=== PATIENT | female | born 1955 | race African-American/Black ===

== ENCOUNTER 2020-04-12 05:31 | Observation (INO) | payer MEDICARE ==
[2020-04-08 13:58] LABS: BASOPHILS # (AUTO) 0.1 (0.0-0.1); BASOPHILS % 0.6 % (0.0-1.0); EOSINOPHILS # (AUTO) 0.1 (0.0-0.4); EOSINOPHILS % 1.2 % (0.0-6.0); HEMATOCRIT 36.6 % (34.2-44.1); HEMOGLOBIN 11.2 g/dL (12.0-16.0); LYMPHOCYTES # (AUTO) 4.5 (1.0-3.2); LYMPHOCYTES % 41.7 % (18.0-39.1); MEAN CORPUSCULAR HEMOGLOBIN 23.2 pg (28-32); MEAN CORPUSCULAR HGB CONC 30.6 g/dL (31-35); MEAN CORPUSCULAR VOLUME 75.9 fL (81-99); MONOCYTES # (AUTO) 0.9 (0.2-0.8); MONOCYTES % 8.2 % (4.4-11.3); NEUTROPHILS # (AUTO) 5.2 (2.1-6.9); NEUTROPHILS % 47.9 % (38.7-80.0); PLATELET COUNT 291 x10e3/uL (140-360); RED BLOOD COUNT 4.82 x10e6/uL (3.6-5.1); RED CELL DISTRIBUTION WIDTH 16.5 % (11.7-14.4)
[~2020-04-12] VITALS: Ht 170.2 cm; Wt 121.6 kg
[~2020-04-12 05:31] MED LIST: AMLODIPINE BESYL5 MG PO; ATORVASTATIN CA20 MG PO; MELOXICAM7.5 MG PO
[2020-04-12] MEDS ORDERED: TRANEXAMIC ACID 1,000 MG/10 ML ML ONE (06:22)
[2020-04-12] MEDS ORDERED: VANCOMYCIN HCL 1,000 MG ONE (06:22)
[2020-04-12] MEDS ORDERED: SODIUM CHLORIDE 0.9% 500ML 500 ML ONE (06:23)
[2020-04-12] MEDS ORDERED: DEXAMETHASONE SOD PHOS 10 MG/1 ML VIAL ONE (06:28)
[2020-04-12] MEDS ORDERED: CEFAZOLIN SOD 1 GM/NS 50ML 100 ML IV ONE (06:28)
[2020-04-12] MEDS ORDERED: GABAPENTIN 300 MG CAP ONE (06:28)
[2020-04-12] MEDS ORDERED: CELECOXIB 200 MG CAP ONE (06:28)
[2020-04-12] MEDS ORDERED: BUPIVACAINE 7.5MG/ML /DEXTROSE 82.5MG/ML 2 ML AMP INJ ONE (06:44)
[2020-04-12] MEDS ORDERED: ROPIVACAINE 246.25 MG, EPINEPHRINE HCL 1:1000 1ML 0.5 MG, CLONIDINE HCL 0.08 MG, KETORO... INJ ONE ×5 (08:00)
[2020-04-12] MEDS ORDERED: DOCUSATE SODIUM 100 MG CAP PO PRN (08:30)
[2020-04-12] MEDS ORDERED: ACETAMINOPHEN 650 MG SUPP PR PRN (08:30)
[2020-04-12] MEDS ORDERED: KETOROLAC TROMETHAMINE 30 MG/ML VIAL IV PRN (08:30)
[2020-04-12] MEDS ORDERED: DIPHENHYDRAMINE HCL INJ 50 MG/ML VIAL IV PRN (08:30)
[2020-04-12] MEDS ORDERED: ONDANSETRON HCL INJ 2MG/ML 2ML 2 MG/ML VIAL IV PRN (08:30)
[2020-04-12] MEDS: SODIUM CHLORIDE 0.9% 1000ML 1,000 ML IV SCH ×2 (08:30→17:21)
[2020-04-12] MEDS ORDERED: HYDROCODONE/APAP 5MG-325MG TAB PO PRN (08:30)
[2020-04-12] MEDS: CELECOXIB 100 MG CAP PO SCH ×2 (09:00→17:01)
[2020-04-12] MEDS: ASPIRIN 325 MG TAB PO SCH ×2 (09:00→17:01)
--- NOTE | 2020-04-12 09:19 | Diagnostic Imaging Report ---
Pelvis one view INDICATION: ^POST OP ^[id number] ^0850 ^IN PACU Comparison: None available. Discussion: Postoperative changes are identified from bilateral hip arthroplasties. Right acetabular single fixation screw is noted. No left acetabular fixation screws are noted. Prostheses appear in anatomic alignment. Pubic symphysis is not widened. Subcutaneous emphysema is identified overlying the right lateral soft tissues of the hip. IMPRESSION: Bilateral hip prostheses appear in anatomic alignment without evidence of hardware malfunction. Signed by: Hernan Pederson MD on 04/12/2020 9:16 AM
--- NOTE | 2020-04-12 09:38 | Operative Report ---
DATE OF PROCEDURE: 04/12/2020 SURGEON: Jas Gomez MD CHUTE TENDER: Steve Figueroa, certified PA. PREOPERATIVE DIAGNOSIS: Osteoarthritis, right hip. SECONDARY DIAGNOSIS: Morbid obesity. POSTOPERATIVE DIAGNOSES: 1. Osteoarthritis, right hip. 2. Morbid obesity. PROCEDURE: Right total hip arthroplasty, * added complexity secondary to BMI greater than 42. INDICATIONS: The patient is a 64-year-old lady, who has end-stage arthritis of her right hip. She has failed conservative management and would like to proceed with a right total hip replacement. She is status post a left total hip replacement in the past. She is happy with the outcome. We plan on a different type of hip replacement due to her obesity. We previously did a cemented hip on her left side. We now planned on a press-fit hip. The risks and benefits have been explained. The implants, the hospital stay, and recovery have been discussed. She states she understands and wishes to proceed. PROCEDURE IN DETAIL: The patient was brought to the operating room and given a spinal anesthetic. She received prophylactic antibiotics and tranexamic acid in the holding area. She was positioned in the left lateral decubitus position. Added time and personnel was necessary due to the patient's obesity. The right hip was prepped and draped in a sterile manner. A preoperative time out was performed. A posterior approach was made to the right hip. A slightly more extensile incision was necessary due to her body habitus. Hemostasis was obtained with electrocautery. A deep self-retaining Charnley retractor was placed. The posterior capsule and short external rotators were carefully exposed. Added hemostasis was obtained with electrocautery. Difficulties were encountered due to the altered surgical field. The posterior capsule was released. A portion of the short external rotators were released. The hip was dislocated and an oscillating saw was used to resect the femoral head. Complete loss of articular cartilage was noted. Acetabular retractors were carefully placed. Again, challenges were encountered due to the deep and altered surgical field. Once the socket was carefully exposed, a long-handle knife was used to excise the remnants of the labrum. The true floor of the acetabulum was established with a 46 mm reamer. The socket was then sequentially reamed up to 53 mm. This accomplished bleeding hemispherical cancellous bone. A subchondral cyst in the superior dome of the socket was debrided with a curette. A Lili/Biomet 54 mm outer diameter OsseoTi socket was then impacted into place. The hip had been thoroughly irrigated several times with a shower tip pulsatile lavage. Fixation was augmented with a single 25 mm cancellous screw placed into the ilium. Excellent bone purchase was encountered. The hip was further irrigated and a highly cross-linked polyethylene liner with a 36 mm inner diameter was seated into place. Care was taken to make sure that there was no evidence of soft tissue interposition. A portion of a 100 mL premixed pericapsular JOSÉ MIGUEL injection was placed around the socket. The socket was packed with a moistly soaked lap sponge and attention was directed towards the proximal femur. Again, some challenges were encountered to accomplish adequate visualization. A box cutting osteotome and taper pin reamer were used to establish entry to the femoral canal. The Lili/Biomet Taperloc broaches were impacted. A size 8 stem had good stability for trial reduction. A standard 36 mm head was seated. A reduction was performed. The hip was put through range of motion and felt to have appropriate soft tissue balancing and jainism of limb length. The trial implants were removed. The hip was thoroughly irrigated with a shower tip pulsatile lavage. The implants were opened on the back table and the stem was seated. A standard neck and 36 mm ceramic head were seated onto a clean and dry stem. A final reduction was performed. The posterior capsule was repaired with #2 Ethibond. A 500 mg of vancomycin powder was sprinkled into the deep wound. The deep fascia was closed with interrupted #2 Ethibond. The skin was closed with subcuticular Vicryl and lynn. A sterile Aquacel bandage was applied. The patient was returned to the supine position. She was transported to the recovery room in stable condition. Estimated blood loss was 150 mL. All needle and sponge counts were correct. Jas Gomez MD DR/HEIDE /[id number]
[2020-04-12 10:29] VITALS: BP 105/64
[2020-04-12 11:33] VITALS: BP 105/64
[2020-04-12] MEDS ORDERED: ACETAMINOPHEN 1000 MG/100 ML IV PRN (12:00)
[2020-04-12] MEDS ORDERED: PROPOFOL IV EMULSION 10 MG/ML 20 ML VIAL ONE (13:08)
[2020-04-12] MEDS ORDERED: LIDOCAINE HCL 2% LOCAL INJ 5 ML SDV VIAL INJ ONE (13:08)
[2020-04-12] MEDS ORDERED: ONDANSETRON HCL INJ 2MG/ML 2ML 2 MG/ML VIAL ONE (13:08)
[2020-04-12] MEDS ORDERED: EPHEDRINE SULFATE INJ 50 MG/ML VIAL ONE (13:08)
[2020-04-12] MEDS ORDERED: DEXAMETHASONE SOD PHOS INJ 4 MG/ML VIAL ONE (13:08)
[2020-04-12] MEDS ORDERED: MIDAZOLAM HCL 2 MG/2 ML VIAL ONE (13:35)
--- NOTE | 2020-04-12 14:20 | NUR ---
DR LARSON OFFICE PREARRANGED FOLLOWING DISCHARGE PLAN OF:HOME [id number] [place] [address] [facility] WITH [facility] CONFIRMED WITH EMRE KUMARI DECLINED STATES HAS AT HOME ALREADY FROM [facility] SIGNED AND ON CHART COPY LEFT WITH PATIENT GAVE CARD FOR QUESTIONS AND OR CONCERNS.
[2020-04-12] MEDS: CEFAZOLIN SOD 1 GM/NS 50ML 50 ML IV SCH ×2 (14:41→21:28)
[2020-04-12] MEDS: HYDROCODONE/APAP 7.5MG-325MG 1 EA TAB PO PRN ×2 (14:53→21:29)
[2020-04-12 15:44] VITALS: BP 100/52
[2020-04-12 19:05] VITALS: BP 111/67
--- NOTE | 2020-04-12 19:30 | NUR ---
BEDSIDE SHIFT REPORT RECEIVED FROM DAY RN. PT IS A&O X3. RT HIP DRESSING DRY AND INTACT. ABDUCTOR PILLOW ON. 20 G LAC - SITE HEALTHY AND PATENT. PURWICK ON. PT TOLERATING PO WELL. CALL LIGHT WITHIN REACH. BED LOCKED AND IN LOW POSITION.
[2020-04-12 21:00] VITALS: BP 111/67
[2020-04-12] MEDS ORDERED: ZOLPIDEM TARTRATE 5 MG TAB PO PRN (21:00)
[2020-04-12] MEDS ORDERED: SODIUM CHLORIDE 0.9% 250ML 250 ML ONE (21:50)
[2020-04-13 01:29] VITALS: BP 96/50
[2020-04-13] MEDS: SODIUM CHLORIDE 0.9% 1000ML 1,000 ML IV SCH (04:30)
[2020-04-13 05:12] LABS: HEMATOCRIT 31.6 % (34.2-44.1); HEMOGLOBIN 9.9 g/dL (12.0-16.0)
[2020-04-13] MEDS: CEFAZOLIN SOD 1 GM/NS 50ML 50 ML IV SCH (05:19)
--- NOTE | 2020-04-13 05:24 | Consultation ---
DATE OF CONSULTATION: REASON FOR CONSULTATION: Postop medical management. HISTORY OF PRESENT ILLNESS: The patient is a 64-year-old lady, who is status post right hip arthroplasty for end-stage osteoarthritis. She is actually doing well postoperatively with minimal right hip pain and she denies fever, chills, nausea, vomiting, shortness of breath, dizziness, or headache on review of systems. PAST MEDICAL HISTORY: Significant for hypertension and osteoarthritis. MEDICATIONS: Norvasc 5 mg a day and tramadol p.r.n. SOCIAL HISTORY: Nondrinker. Retired. . Nonsmoker. FAMILY HISTORY: Breast cancer, diabetes, high blood pressure. ALLERGIES: NONE. PHYSICAL EXAMINATION: VITAL SIGNS: Temperature 97.8, pulse 75, blood pressure 96/56, sats 98% on room air. GENERAL: She is in no apparent distress, lying in bed. NECK: Supple. No lymphadenopathy. CARDIOVASCULAR: Regular rate and rhythm. LUNGS: Clear to auscultation bilaterally. ABDOMEN: Good bowel sounds. Soft and nontender. EXTREMITIES: No clubbing or cyanosis. Right hip bandage is clean. NEUROLOGIC: Nonfocal. Moves all extremities x4. ASSESSMENT/PLAN: 1. Right hip pain. We will continue with postoperative care and pain control. 2. Anemia. Check a CBC. 3. Hypotension. We will continue to monitor. The patient is asymptomatic. 4. History of hypertension. We will hold off her blood pressure medicine right now. 5. Morbid obesity. The patient is encouraged to diet. Please see hospital chart for full details. MD LOUIS Baltazar/HEIDE /[id number]
[2020-04-13 06:20] VITALS: BP 117/63
[2020-04-13 07:58] VITALS: BP 119/76
[2020-04-13] MEDS: ASPIRIN 325 MG TAB PO SCH (08:42)
[2020-04-13] MEDS: CELECOXIB 100 MG CAP PO SCH (08:42)
[2020-04-13 11:53] VITALS: BP 119/61
[2020-04-13] MEDS ORDERED: ONDANSETRON HCL 4 MG ORAL DISINTEGRATING TAB PO PRN (13:15)
== END 2020-04-13 15:31 | disposition home or self-care (01) ==
LOC: OR 05:31 → PACU V 08:22 → MED/SURG 10:24
PROVIDERS: ADMIT Specialist; ATTEND Specialist
DX: M16.0 Bilateral primary osteoarthritis of hip (principal); E66.01 Morbid (severe) obesity due to excess calories; Z68.41 Body mass index [BMI] 40.0-44.9, adult; Z01.812 Encounter for preprocedural laboratory examination; Z11.59 Encounter for screening for other viral diseases; Z96.642 Presence of left artificial hip joint; E78.5 Hyperlipidemia, unspecified; K21.9 Gastro-esophageal reflux disease without esophagitis; D64.9 Anemia, unspecified; I10 Essential (primary) hypertension
CPT/HCPCS: 27130; 36415 ×2; 72170; 85014; 85018; 85025; 86850; 86900; 86920; 86922; 97110; 97116; 97139; 97162; 97530 ×2; G0378 ×2; J0171; J0690 ×2; J1100 ×2; J1885 ×2; J2001; J2250; J2405; J2704; J2795; J3370; J7040; J7050; U0002